=== PATIENT | male | born 1960 | race Caucasian/White ===

== ENCOUNTER 2020-06-14 08:45 | Outpatient (CLI) | payer BC, SELFPAY ==
[2020-06-14 10:06] LABS: Creatinine Urine 99.1 mg/dL
[2020-06-14 10:35] LABS: Free T4 Free Thyroxine 1.47 ng/mL (0.78-2.19)
[2020-06-14 10:50] LABS: MALB Creatinine Ratio 1005.7 mg/g (0-30); Microalbumin Urine Random 996.6 mg/L (0-16.7)
[2020-06-14 12:19] LABS: Anion Gap 9 mmol/L (8-16); Blood Urea Nitrogen 17 mg/dL (9-20); Calcium 9.3 mg/dL (8.4-10.2); Carbon Dioxide 23 mmol/L (22-30); Chloride 107 mmol/L (98-107); Estimated Glomerular Filt Rate > 60; Glucose 116 mg/dL (75-110); Sodium 139 mmol/L (137-145)
[2020-06-14 12:33] LABS: Thyroid Stimulating Hormone 0.707 uIU/mL (0.465-4.680)
== END 2020-06-14 08:46 | disposition home or self-care (01) ==
LOC: ANHLAB 08:47
PROVIDERS: PCP Internal Medicine; Visit Provider Physician Assistant
DX: E11.65 Type 2 diabetes mellitus with hyperglycemia (principal); E03.9 Hypothyroidism, unspecified
CPT/HCPCS: 36415; 80048; 82043; 84439; 84443

== ENCOUNTER 2021-08-24 15:16 | Outpatient (CLI) | payer BC, SELFPAY ==
[2021-08-24 15:57] LABS: Alanine Aminotransferase 30 U/L (4-50); Albumin Level 4.7 g/dL (3.5-5.1); Alkaline Phosphatase 70 U/L (38-126); Anion Gap 8 mmol/L (8-16); Aspartate Amino Transferase 39 U/L (17-59); Bilirubin,Total 0.4 mg/dL (0.2-1.3); Blood Urea Nitrogen 14 mg/dL (9-20); Calcium 9.6 mg/dL (8.4-10.2); Carbon Dioxide 25 mmol/L (22-30); Chloride 103 mmol/L (98-107); Cholesterol 201 mg/dL (0-200); Estimated Glomerular Filt Rate > 60; Glucose 219 mg/dL (65-110); HDL Direct 46 mg/dL; Sodium 136 mmol/L (137-145); Triglycerides 196 mg/dL (<150)
[2021-08-24 16:08] LABS: LDL Cholesterol Direct 112 mg/dL
[2021-08-24 16:24] LABS: Creatinine Urine 120.3 mg/dL
[2021-08-24 16:38] LABS: Free T4 Free Thyroxine 1.32 ng/mL (0.78-2.19); Vitamin D 25 Hydroxy 38.9 ng/mL
[2021-08-24 17:17] LABS: MALB Creatinine Ratio 944.9 mg/g (0-30); Microalbumin Urine Random 1136.7 mg/L (0-16.7)
== END 2021-08-24 15:17 | disposition home or self-care (01) ==
LOC: ANHLAB 15:17
PROVIDERS: PCP Internal Medicine; Visit Provider Nurse Practitioner Family
DX: E11.65 Type 2 diabetes mellitus with hyperglycemia (principal); E11.9 Type 2 diabetes mellitus without complications; I10 Essential (primary) hypertension; E78.5 Hyperlipidemia, unspecified
CPT/HCPCS: 36415; 80053; 80061; 82043; 82306; 82607; 84439; 84443

== ENCOUNTER 2022-06-14 08:59 | Inpatient (IN) | payer BC, SELFPAY ==
[2022-06-14] VITALS (24 sets, daily range): BP systolic 132–180; BP diastolic 52–78; PULSE 73–93; RESP 16–30; TEMP 36.7–37.1; O2SAT 91–97; BMI 31.4
--- NOTE | ~2022-06-14 | XR_ITS ---
XR chest 1V portable DATE: 06/14/2022 09:42 INDICATION: Cough, shortness of breath TECHNIQUE: Portable AP chest 04/14/2023 at 0938 hours COMPARISON: 02/22/2019 PA and lateral chest FINDINGS: Status post sternotomy and coronary bypass graft surgery. Minimal atelectasis or scarring is suggested in the lower lung zones. No pulmonary consolidation is n oted otherwise. No pleural effusion or pulmonary vascular congestion or pneumothorax is detected. IMPRESSION: Minimal atelectasis or scarring is suggested in the lower lung zones Reviewed, dictated and finalized at location B. L ROLLER IMPRESSION: Minimal atelectasis or scarring is suggested in the lower lung zone s
--- NOTE | ~2022-06-14 | CT_ITS ---
EXAMINATION: CTA chest PE abdomen pel DATE: 06/14/2022 13:29 INDICATION: Shortness of breath. Right-sided rib pain, abdominal pain. Elevated d-dimer. TECHNIQUE: Computed tomography angiography (CTA) of the chest, abdomen and pelvis was performed with 100 mL Omnipaque-350 intravenous contrast timed to evaluate the pulmonary arteries. Coronal maximum i ntensity projection 3D-reconstructions were created by the technologist. Automated exposure control a nd iterative reconstruction technique were employed. Exam dose: 1131.26 mGy-cm total exam DLP. COMPARISON: 06/14/2022 portable AP chest 06/19/2015 CT abdomen pelvis FINDINGS: There is diagnostic contrast enhancement of the pulmonary arteries and no evidence of pulmo nary embolism. There is patchy mild infiltrate throughout much of the right lower lobe, with slight involvement of t he right upper lobe. There is mild discoid atelectasis or scarring in the left lower lobe and to minimal extent lingula. There is mild bilateral mediastinal and hilar lymph node prominence, likely reactive. No thoracic aortic aneurysm or dissection. There is pleural calcification in the right lower thorax. Status post sternotomy. No pericardial or pleural effusion or pneumothorax. Status post cholecystectomy. No bile duct or pancreatic duct dilatation. Very small right hepatic cyst. The liver, spleen, pancreas and adrenal glands are unremarkable. Bilateral renal cysts, measuring up to 2 cm on the right, 1.7 cm on the left. No urinary tract calculus or urinary tract obstruction or hydroureteronephrosis. Prominent prostate enlargement. Small bilateral fat containing inguinal hernias. Small fat containing umbilical hernia. Diffuse idiopathic skeletal hyperostosis. No suspicious osteolytic or osteoblastic lesions. IMPRESSION: No evidence of pulmonary embolism Patchy right lower lobe and minimal upper lobe infiltrate, likely due to pneumonia Mild discoid atelectasis or scarring left lower lung Hepatic and renal cysts Prostate enlargement Reviewed, dictated and finalized at Location [facility]. Reviewed, dictated and finalized at location B. ER CHASER IMPRESSION: No evidence of pulmonary embolism Patchy right lower lobe and minimal upper lobe infiltrate, likely due to pneumo emir Mild discoid atelectasis or scarring left lower lung Hepatic and renal cysts Prostate enlargement
--- NOTE | 2022-06-14 09:23 | ECG_ITS ---
Measurements Intervals Spur Rate: 82 P: 71 GA: 162 QRS: 86 QRSD: 100 T: 56 QT: 379 QTc: 445 Interpretive Statements SINUS RHYTHM INCOMPLETE RIGHT BUNDLE BRANCH BLOCK BORDERLINE R WAVE PROGRESSION, ANTERIOR LEADS BASELINE ARTIFACT- I, II, III, AVR, AVL, AVF, V2-V6 BORDERLINE ECG COMPARED TO ECG 02/22/2019 11:27:29 NO SIGNIFICANT CHANGES Electronically Signed On 06-14-2022 10:49:44 [employer]ANE RENTAL CLERK by John Moise D.O.
--- NOTE | 2022-06-14 09:32 | ED.SOB ---
HPI - SOB/Dyspnea General Chief Complaint: Shortness of Breath/Dyspnea <Stephanie Martinez PA-C - Last Filed: 06/14/22 15:20> Stated Complaint: sob, cough <MARII Matthew Last Filed: 06/14/22 15:20> Time Seen by Provider: 06/14/22 09:09 <Stephanie Martinez PA-C - Last Filed: 06/14/22 15:20> Source: patient, family and RN notes reviewed <MARII Matthew Last Filed: 06/14/22 15:20> Mode of arrival: ambulatory <MARII Matthew Last Filed: 06/14/22 15:20> Limitations: no limitations <MARII Matthew Last Filed: 06/14/22 15:20> History of Present Illness HPI Narrative: This is a 62 year old male that presents to the ER for shortness of breath ongoing over the last couple of days. Reports productive cough, diarrhea and right sided abdominal pain ongoing over the last week. Reports the last couple of days he has become more short of breath, especially with exertion. He tried to go to work today and was sent home. Denies fever, chest pain, vomiting, or lower extremity edema. <MARII Matthew Last Filed: 06/14/22 15:20> Related Data Home Medications: Home Medications Medication Instructions Recorded Confirmed aspirin 81 mg tablet,delayed 81 mg PO DAILY 04/17/19 06/14/22 release (Adult Aspirin Regimen) metoprolol succinate 25 mg capsule 25 mg PO BID 04/17/19 06/14/22 sprinkle, ext. release 24 hr blood sugar diagnostic (OneTouch #10 ea 04/21/19 06/14/22 Ultra Blue Test Strip) lancets 33 gauge (OneTouch Delica #100 ea 04/21/19 06/14/22 Lancets) simvastatin 40 mg tablet 40 mg PO BID 12/07/21 06/14/22 <MARII Matthew Last Filed: 06/14/22 15:20> Allergies/Adverse Reactions: Allergies Allergy/AdvReac Type Severity Reaction Status Date / Time No Known Allergies Allergy Verified 06/14/22 17:31 <Stephanie Martinez PA-C - Last Filed: 06/14/22 15:20> Review of Systems Review of Systems: CONSTITUTIONAL: Denies fever ENT: Reports congestion CARDIOVASCULAR: Denies chest pain, or edema. RESPIRATORY: Reports cough and dyspnea. GASTROINTESTINAL: Reports abdominal pain, and diarrhea. Denies nausea, vomiting <Stephanie Martinez PA-C - Last Filed: 06/14/22 15:20> All systems reviewed & are unremarkable except as noted in HPI and below <Stephanie Martinez PA-C - Last Filed: 06/14/22 15:20> [facility] Past Medical History Medical History: Medical History (Updated 06/14/22 @ 14:21 by Stephanie Martinez PA-C) Hyperlipidemia Hypertension Hypothyroidism, unspecified Type 2 diabetes mellitus with hyperglycemia <Stephanie Martinez PA-C - Last Filed: 06/14/22 15:20> Surgical History Surgical History: Surgical History (Updated 06/14/22 @ 09:42 by Stephanie Martinez PA-C) History of cholecystectomy History of coronary artery bypass graft <Stephanie Martinez PA-C - Last Filed: 06/14/22 15:20> Family History Family History: Family History (Reviewed 03/15/22 @ 12:57 by Marianne Oro [facility]) Father Hypertension Family history of malignant neoplasm of kidney Family history of congestive heart failure Carcinoma of colon Family history of malignant neoplasm Patient's father is Mother Patient's mother is in good health Other Diabetes mellitus <Stephanie Martinez PA-C - Last Filed: 06/14/22 15:20> Social History Social History: Social History (Reviewed 03/15/22 @ 12:57 by Marianne Oro [facility]) Smoking status: Never smoker Second hand tobacco smoke exposure: No Alcohol intake: current Substance use: never Substance use type: does not use Lack of Transportation: No Lack of Food: Never True Current Housing: I Have Housing Concerned About Future Housing: No Difficulty Paying Gas/Electric Bills: No Difficulty Paying for Meds: No Currently Unemployed: No Education: High School Diploma/GED Difficulty w/ Childcare or Family Care: No Spiritual care concerns: No <Stephanie
[2022-06-14] MEDS: ALBUTEROL SULFATE NEB 2.5 MG/3 ML INH 5 MG INHALATION ×3 (09:50→21:07)
[2022-06-14] MEDS: IPRATROPIUM BR 0.02% INH SOLN 0.5 MG/2.5 ML VIAL INHALATION ×3 (09:50→21:08)
[2022-06-14 09:55] LABS: Basophils Absolute Auto 0.1 K/mm3 (0.0-0.1); Basophils Percent Auto 0.7 % (0.2-1.2); Eosinophils Percent Auto 0.1 % (0-4.4); Hematocrit 47.8 % (42.0-52.0); Hemoglobin 15.9 g/dL (14.0-18.0); Immature Granulocyte Absolute 0.08 K/mm3 (0.00-0.031); Immature Granulocyte Percent A 0.7 % (0-0.5); Lymphocytes Absolute Auto 1.23 K/mm3 (0.9-3.2); Lymphocytes Percent Auto 10.7 % (18.3-44.2); Mean Corpuscular HGB Conc 33.3 g/dl (32-36); Mean Corpuscular Hemoglobin 29.6 pg (26-34); Mean Corpuscular Volume 88.8 fl (80-100); Mean Platelet Volume 10.4 fl (7.4-10.4); Monocytes Absolute Auto 1.4 K/mm3 (0.1-0.6); Neutrophils Absolute Auto 8.8 K/mm3 (1.3-6.7); Neutrophils Percent Auto 75.8 % (45.5-73.1); Platelet Count Result 200 k/mm3 (150-375); Red Blood Count 5.38 M/mm3 (4.6-6.20); Red Cell Distribution Width 13.6 % (11.5-14.5); White Blood Count 11.5 K/mm3 (4.5-10.0)
[2022-06-14 10:01] LABS: Alveolar/Arterial O2 Gradient 48.5 mmHg; Base Excess ABG 0.2 mEq/l (+/-2.0); Carboxyhemoglobin 1.1 % THb (0-2.0); Device ROOM AIR; Fractional Inspired Oxygen 21 %; HCO3 ABG 23.1 mEq/l (22.0-26.0); Methemoglobin ABG 0.4 %THb (0-1.5); Modified Allen's Test Pass; Oxygen Content ABG 20.3 %vol (16.0-22.0); Oxygen Saturation ABG 93.2 % (95.0-100.0); Oxyhemoglobin 90.5 % THb (90.0-100.0); PCO2 ABG 32.9 mmHg (35.0-45.0); PO2 ABG 61.8 mmHg (80.0-100.0); PO2 FiO2 Ratio Arterial Blood 2.94 %; Site Drawn RIGHT RADIAL; pH ABG 7.464 (7.350-7.450)
[2022-06-14 10:05] LABS: Lactic Acid Reflex 2.1 mmol/L (0.7-2.0)
[2022-06-14 10:07] LABS: Alanine Aminotransferase 27 U/L (6-50); Albumin Level 4.7 g/dL (3.5-5.1); Alkaline Phosphatase 81 U/L (38-126); Anion Gap 9 mmol/L (8-16); Aspartate Amino Transferase 31 U/L (17-59); Bilirubin,Total 0.7 mg/dL (0.2-1.3); Blood Urea Nitrogen 12 mg/dL (9-20); CRP 2.9 mg/dL (<1.0); Calcium 9.4 mg/dL (8.4-10.2); Carbon Dioxide 26 mmol/L (22-30); Chloride 101 mmol/L (98-107); Estimated CRCL calculation 69 ml/min; Estimated Glomerular Filt Rate > 60; Glucose 260 mg/dL (65-110); Lipase 118 U/L (23-300); Potassium 4.5 mmol/L (3.4-5.0); Sodium 136 mmol/L (137-145)
[2022-06-14 10:13] LABS: NT Pro B Type Natriuretic Pept 1060 pg/mL (19.9-100)
[2022-06-14 10:29] LABS: Influenza A QL RT-PCR Negative (Negative); Influenza B QL RT-PCR Negative (Negative); SARS-CoV-2 RNA PCR Negative
[2022-06-14 10:30] LABS: INR 1.2; Partial Thromboplastin Time 33.9 SECONDS (22.3-36.8); Prothrombin Time 14.8 Seconds (11.1-14.7)
[2022-06-14] MEDS: SODIUM CHLORIDE 0.9% IV 500 ML 999 ML IV CONT (10:44)
[2022-06-14 12:02] LABS: D Dimer 0.57 ug/mL (<0.48)
[2022-06-14] MEDS: methylPREDNISolone SOD SUCC 125 MG VIAL IV PUSH (12:22)
--- NOTE | 2022-06-14 12:23 | PC.NURSE ---
CHRISTOPHER Brown placed pt on 2L NC
[2022-06-14 12:51] LABS: Reflex Lactic Acid Yes or No Add Lactic
[2022-06-14 13:22] LABS: Lactic Acid 2.1 mmol/L (0.7-2.0)
--- NOTE | 2022-06-14 13:30 | PM.IMHP ---
H&P: HPI History of Present Illness Date/Time: 06/14/22 13:30 Chief Complaint: Cough and shortness of breath. Narrative: This is a pleasant 62-year-old male with insulin dependent diabetes, coronary artery disease, hypertension, and hyperlipidemia who presented to the ED from home for evaluation of cough and shortness of breath. He has not been feeling well for several days with right-sided pleuritic pain, cough productive of white to yellow phlegm, chills, and progressive shortness of breath. His appetite has been okay and he denies nausea, vomiting, and significant diarrhea. He also denies fever, recent travel, and known sick contacts. Workup in the ED was significant for a WBC of 11.5, D-dimer 0.57, sodium 136, lactic acid 2.1, CRP 2.9, proBNP 1060. He tested negative for influenza and COVID. CTA of the chest, abdomen, and pelvis showed no evidence of pulmonary embolism but did note patchy right lower lobe and minimal upper lobe infiltrate likely due to pneumonia. He is being admitted in this setting for further care. Review of Systems Review of Systems: Twelve systems were reviewed. No headache, sinus congestion, sore throat. He denies chest pain palpitations. No orthopnea, PND, or lower extremity edema. No history of asthma or COPD. Except as documented, all other systems were reviewed and are negative. [facility] Past Medical History Medical History (Updated 06/14/22 @ 21:44 by Laura Cox PA-C) Aortic valve stenosis Severe by echo in October 2021 with moderate aortic valve regurgitation. Coronary artery disease Hyperlipidemia Hypertension Hypothyroidism, unspecified Insulin dependent type 2 diabetes mellitus Paroxysmal atrial fibrillation Surgical History Surgical History (Updated 06/14/22 @ 21:35 by Laura Cox PA-C) History of cholecystectomy (01/2019) History of two vessel coronary artery bypass graft (2014) Family History Family History Father Hypertension Family history of malignant neoplasm of kidney Family history of congestive heart failure Carcinoma of colon Family history of malignant neoplasm Patient's father is Mother Patient's mother is in good health Other Diabetes mellitus Social History Social History (Updated 06/14/22 @ 21:36 by Laura Cox PA-C) Social History: Surrogate medical decision maker: Lori Pineda, spouse. Code status: Full code. Smoking status: Never smoker Second hand tobacco smoke exposure: No Alcohol intake: current Substance use: never Substance use type: does not use Lack of Transportation: No Lack of Food: Never True Current Housing: I Have Housing Concerned About Future Housing: No Difficulty Paying Gas/Electric Bills: No Difficulty Paying for Meds: No Currently Unemployed: No Education: High School Diploma/GED Difficulty w/ Childcare or Family Care: No Spiritual care concerns: No Meds Home Medications and Allergies Home Medications Medication Instructions Recorded Confirmed Type aspirin 81 mg tablet,delayed 81 mg PO DAILY 04/17/19 06/14/22 History release (Adult Aspirin Regimen) metoprolol succinate 25 mg capsule 25 mg PO BID 04/17/19 06/14/22 History sprinkle, ext. release 24 hr blood sugar diagnostic (OneTouch #10 ea 04/21/19 06/14/22 History Ultra Blue Test Strip) lancets 33 gauge (OneTouch Delica #100 ea 04/21/19 06/14/22 History Lancets) pen needle, diabetic 31 gauge x #200 ea 08/18/21 06/14/22 Rx 5/16 (BD Ultra-Fine Short Pen Needle) dulaglutide 4.5 mg/0.5 mL 4.5 mg (0.5 mL) subcut WEEKLY 12/07/21 06/14/22 Rx subcutaneous pen injector days #6.5 mL simvastatin 40 mg tablet 40 mg PO BID 12/07/21 06/14/22 History losartan 50 mg tablet 50 mg PO DAILY 30 days #30 tabs 12/31/21 06/14/22 Rx insulin lispro protamine-lispro 60 unit (0.6 mL) subcut BID 02/03/22 06/14/22 Rx 100 unit/mL (75-25) subcut
[2022-06-14 16:18] LABS: Glucose Point of Care 317 mg/dl (65-105)
--- NOTE | 2022-06-14 17:13 | PC.NURSE ---
rn report given to edwin
[2022-06-14] MEDS: SODIUM CHLORIDE 0.9% IV 1,000 ML 999 ML IV CONT (17:15)
--- NOTE | 2022-06-14 17:28 | ADMGEN ---
This patient, Francisco Pineda, was admitted to Medical Room 245-. Patient/family oriented to hospital policies and general routines including ID bracelet, bed and alarms, visiting hours, pain management, procedures, bathroom and other care routines, personal items, smoking policy, room service/diet, and visiting hours. Information on how to activate the Rapid Response Team has been discussed. Patient/Family are encouraged to report perceived risks to care and to ask questions if they do not understand what they are told or what they should do.
[2022-06-14 21:16] LABS: Glucose Point of Care 401 mg/dl (65-105)
[2022-06-14] MEDS: INSULIN ASPART (*BKC) 100 UNITS/ML 8 UNITS SUB-Q (21:32)
[2022-06-14] MEDS: SIMVASTATIN 20 MG TABLET 40 MG PO (22:10)
[2022-06-14] MEDS: METOPROLOL SUCCINATE EXT REL 25 MG TABCR PO (22:10)
[2022-06-15] VITALS (11 sets, daily range): BP systolic 129–141; BP diastolic 58–65; PULSE 64–90; RESP 16–20; TEMP 36.4–36.9; O2SAT 90–98
[2022-06-15] MEDS: ALBUTEROL SULFATE NEB 2.5 MG/3 ML INH 5 MG INHALATION ×4 (02:22→21:05)
[2022-06-15] MEDS: IPRATROPIUM BR 0.02% INH SOLN 0.5 MG/2.5 ML VIAL INHALATION ×4 (02:23→21:04)
[2022-06-15] MEDS: LEVOTHYROXINE SODIUM 75 MCG TABLET PO (05:31)
[2022-06-15] MEDS: LEVOTHYROXINE SODIUM 100 MCG TABLET PO (05:31)
[2022-06-15 05:32] LABS: Hematocrit 44.8 % (42.0-52.0); Mean Corpuscular HGB Conc 33.5 g/dl (32-36); Mean Corpuscular Volume 89.6 fl (80-100); Mean Platelet Volume 10.5 fl (7.4-10.4); Platelet Count Result 205 k/mm3 (150-375); Red Cell Distribution Width 13.8 % (11.5-14.5); White Blood Count 13.7 K/mm3 (4.5-10.0)
[2022-06-15 05:43] LABS: Alanine Aminotransferase 27 U/L (6-50); Albumin Level 4.2 g/dL (3.5-5.1); Alkaline Phosphatase 78 U/L (38-126); Anion Gap 9 mmol/L (8-16); Aspartate Amino Transferase 33 U/L (17-59); Bilirubin,Total 0.4 mg/dL (0.2-1.3); Blood Urea Nitrogen 19 mg/dL (9-20); Calcium 8.9 mg/dL (8.4-10.2); Carbon Dioxide 23 mmol/L (22-30); Chloride 103 mmol/L (98-107); Estimated CRCL calculation 76 ml/min; Estimated Glomerular Filt Rate > 60; Glucose 356 mg/dL (65-110); Magnesium 2.1 mg/dL (1.6-2.3); Potassium 4.3 mmol/L (3.4-5.0); Sodium 135 mmol/L (137-145)
[2022-06-15 06:33] LABS: Hemoglobin A1C 7.5 % (<5.7)
[2022-06-15 08:45] LABS: Glucose Point of Care 405 mg/dl (65-105)
[2022-06-15] MEDS: INSULIN ASPART (*BKC) 100 UNITS/ML SUB-Q ×2 (08:53→12:36)
[2022-06-15] MEDS: SIMVASTATIN 20 MG TABLET 40 MG PO ×2 (08:59→17:33)
[2022-06-15] MEDS: LOSARTAN POTASSIUM 50 MG TABLET PO (08:59)
[2022-06-15] MEDS: ENOXAPARIN 40 MG/0.4 ML SYRINGE SUB-Q (08:59)
[2022-06-15] MEDS: ASPIRIN 81 MG ENTERIC TABLET PO (08:59)
[2022-06-15] MEDS: METOPROLOL SUCCINATE EXT REL 25 MG TABCR PO ×2 (08:59→17:32)
[2022-06-15 12:18] LABS: Glucose Point of Care 340 mg/dl (65-105)
--- NOTE | 2022-06-15 16:44 | PM.IMPN ---
Progress Note: A&P Assessment and Plan (1) Hypoxia: Code(s): R09.02 - Hypoxemia Status: Acute Assessment and Plan: patient noted to be hypoxic in the 80s on presentation. He required up to 2 L supplemental O2. He has been weaned to room air and is maintaining adequate O2 sats today. [place] to be secondary to pneumonia as described below. Will plan for home O2 eval prior to discharge. CTA negative for PE. (2) Pneumonia involving right lung: Code(s): J18.9 - Pneumonia, unspecified organism Status: Acute Assessment and Plan: Presented with cough, shortness of breath and general malaise for 5 days. imaging revealed right lower lobe pneumonia. Continue with IV ceftriaxone and azithromycin. Sputum culture ordered, awaiting collection ( patient has nonproductive cough). Legionella and pneumococcal antigens pending. COVID and influenza negative. blood cultures pending. Supportive care. (3) Wheezing: Code(s): R06.2 - Wheezing Status: Acute Assessment and Plan: Patient is mild wheezing on exam. Received 1 dose of IV Solu-Medrol in the ED which resulted in sharp increase in blood sugar, therefore systemic steroids on hold. Continue with scheduled bronchodilators. Patient has had symptomatic improvement. (4) Insulin dependent type 2 diabetes mellitus: Code(s): E11.9 - Type 2 diabetes mellitus without complications; Z79.4 - buttermaker (current) use of insulin Status: Acute Assessment and Plan: A1c is 7.5. Blood sugars elevated today ranging from 340-400. Likely precipitated by dose of steroid. resume home Humalog 75/25 60 units b.i.d.. Continue with high-dose sliding scale insulin. Monitor Accu-Cheks. hypoglycemic protocol in place. Consider increasing Humalog as needed based on blood sugar trends, however anticipate improvement given discontinuation of steroids (5) Coronary artery disease: Code(s): I25.10 - Atherosclerotic heart disease of [place] coronary artery without angina pectoris Status: Chronic Assessment and Plan: No acute issues. Continue home aspirin (6) Hypertension: Code(s): I10 - Essential (primary) hypertension Status: Acute Assessment and Plan: blood sugars have been stable. Last BP 137/58. Continue home losartan and metoprolol Subjective Date/time seen: 06/15/22 16:45 Interval history: date of service: 06/15/2022 Francisco Pineda is a 62-year-old male with a history of aortic stenosis, CAD, hypertension, hyperlipidemia, hypothyroidism, type 2 diabetes mellitus, and paroxysmal atrial fibrillation who is seen in follow-up for pneumonia. Patient states he is feeling much better today. States his breathing has improved in he is wheezing less often. He is still coughing occasionally but has no sputum production. States he is coughing less often and is less forceful. Denies shortness of breath Or LAWS. Denies fever, chills, nausea, or vomiting. He does complain of sore throat. Review of Systems Review of Systems: All systems reviewed & are unremarkable except as noted in HPI and below Exam Narrative: General: Well-nourished, well-appearing 62-year-old male, sitting up in bed, comfortable, NARD Neuro: awake, alert and oriented x4, speech clear, no focal neuro deficits noted HEENMT: normocephalic, atraumatic, EOMI, sclerae anicteric Respiratory: faint expiratory wheezes, nonlabored breathing Cardio: regular rate, regular rhythm with S1-S2 Abdomen: nondistended, normoactive bowel sounds, soft, nontender to palpation Extremities: no edema, erythema, or tenderness to palpation Skin: no rashes or lesions, warm and dry Psych: appropriate mood and affect, judgment and insight intact Objective Data Vital Signs Vital Signs: Vital Signs - 24 hr 06/14/22 16:46 06/14/22 18:23 06/14/22 20:45 Temperature 98.7 F 98.6 F Pulse Rate 82 81 79 Respiratory Rate 24
[2022-06-15 17:15] LABS: Glucose Point of Care 93 mg/dl (65-105)
[2022-06-15] MEDS: AZITHROMYCIN IV 500 MG in SODIUM CHLORIDE 0.9% IV 250 ML 250 MG IVPB (17:31)
[2022-06-15] MEDS: cefTRIAXone 1 GM in SODIUM CHLORIDE 0.9% IV 100 ML 200 ML IVPB (17:31)
[2022-06-15 17:53] LABS: Glucose Point of Care 136 mg/dl (65-105)
[2022-06-15] MEDS: FLUTICASONE PROP 44 MCG (*SP) 10.6 GM 2 PUFF INHALATION (21:05)
[2022-06-15] MEDS: guaiFENesin 12 HR 600 MG TABCR PO (21:28)
[2022-06-15] MEDS: VANCOMYCIN HCL 1,250 MG in SODIUM CHLORIDE 0.9% IV 250 ML 200 MG IVPB (21:28)
[2022-06-16] VITALS (13 sets, daily range): BP systolic 117–135; BP diastolic 55–96; PULSE 61–78; RESP 18–24; TEMP 36.6–36.9; O2SAT 91–95
--- NOTE | 2022-06-16 | ECHO_ITS ---
Patient Info Name: Francisco Pineda Age: 62 years : 1960 Gender: Male Ht: 66 in Wt: 201 lbs BSA: 2.09 m2 HR: 68 bpm BP: 121 / 55 mmHg Heart Rhythm: Sinus Rhythm Exam Date: 06/16/2022 4:04 PM Exam Location: [facility] Pulmonary Patient Status: Inpatient Admit Date: 06/16/2022 Staff Ordering Physician: Roseline Carlson PA-C Body Builder: Petr Bates RDCS Attending Provider: Roseline Carlson PA-C Referring Physician: Aldo PLAZA; Exam Type: CA echo doppler color flow Study Info Indications - bacteremia Complete two-dimensional, color flow and Doppler transthoracic echocardiogram is performed. Summary 1. Complete two-dimensional, color flow and Doppler transthoracic echocardiogram is performed. 2. Left ventricular chamber dimension is normal. 3. Left ventricular systolic function is normal, estimated at 60-65%. 4. Right ventricular systolic function is normal. 5. There is severe aortic valve calcification. 6. There is moderate to severe aortic valve stenosis with a peak velocity of 330 cm/s, mean gradient of 30 mmHg, and aortic valve area of 0.9 cm2. 7. There is mild aortic valve regurgitation. 8. The mitral valve has thickened leaflets and calcified leaflets. 9. The mitral valve annulus is mildly calcified. 10. There is moderate mitral valve regurgitation. Left Ventricle Left ventricular chamber dimension is normal. Left ventricular systolic function is normal, estimated at 60-65%. There is no increased left ventricular wall thickness. The left ventricular diastolic function is indeterminate. Right Ventricle Right ventricular chamber dimension is normal. Right ventricular systolic function is normal. Left Atria Left atrial chamber dimension is normal. Right Atria Right atrial chamber dimension is normal. Atrial Septum Intact interatrial septum visualized by color flow imaging. Aortic Valve The aortic valve is probable trileaflet. There is moderate to severe aortic valve stenosis with a peak velocity of 330 cm/s, mean gradient of 30 mmHg, and aortic valve area of 0.9 cm2. There is mild aortic valve regurgitation. There is severe aortic valve calcification. Pulmonic Valve The pulmonic valve is not well visualized. Mitral Valve The mitral valve has thickened leaflets and calcified leaflets. There is no mitral valve stenosis. There is moderate mitral valve regurgitation. The mitral valve annulus is mildly calcified. Tricuspid Valve The tricuspid valve leaflets are normal. There is no significant tricuspid valve stenosis. There is trace tricuspid valve regurgitation. Pericardium/Pleural There is no pericardial effusion. Inferior Vena Cava Dilated inferior vena cava with >50% collapse upon inspiration consistent with elevated right atrial pressure, 8 mmHg. Aorta The aortic root size at the sinus of Valsalva is normal. Left Ventricular Outflow Tract Name Value Normal LVOT 2D LVOT Diameter 1.8 cm LVOT Doppler LVOT Peak Gradient 6 mmHg LVOT Mean Gradient 3 mmHg LVOT VTI
[2022-06-16] MEDS: ALBUTEROL SULFATE NEB 2.5 MG/3 ML INH 5 MG INHALATION ×4 (02:32→19:35)
[2022-06-16] MEDS: IPRATROPIUM BR 0.02% INH SOLN 0.5 MG/2.5 ML VIAL INHALATION ×4 (02:32→19:34)
[2022-06-16 05:09] LABS: Hematocrit 47.4 % (42.0-52.0); Hemoglobin 15.7 g/dL (14.0-18.0); Mean Corpuscular HGB Conc 33.1 g/dl (32-36); Mean Corpuscular Hemoglobin 30.3 pg (26-34); Mean Corpuscular Volume 91.3 fl (80-100); Mean Platelet Volume 10.2 fl (7.4-10.4); Platelet Count Result 237 k/mm3 (150-375); Red Blood Count 5.19 M/mm3 (4.6-6.20); Red Cell Distribution Width 14.2 % (11.5-14.5); White Blood Count 15.9 K/mm3 (4.5-10.0)
[2022-06-16 05:17] LABS: Anion Gap 8 mmol/L (8-16); Blood Urea Nitrogen 23 mg/dL (9-20); Calcium 8.9 mg/dL (8.4-10.2); Carbon Dioxide 23 mmol/L (22-30); Chloride 107 mmol/L (98-107); Estimated CRCL calculation 77 ml/min; Estimated Glomerular Filt Rate > 60; Glucose 106 mg/dL (65-110); Potassium 3.9 mmol/L (3.4-5.0); Sodium 138 mmol/L (137-145)
[2022-06-16] MEDS: LEVOTHYROXINE SODIUM 100 MCG TABLET PO (05:54)
[2022-06-16] MEDS: LEVOTHYROXINE SODIUM 75 MCG TABLET PO (05:54)
[2022-06-16] MEDS: VANCOMYCIN HCL 1,250 MG in SODIUM CHLORIDE 0.9% IV 250 ML 200 MG IVPB ×2 (06:22→18:33)
[2022-06-16] MEDS: ENOXAPARIN 40 MG/0.4 ML SYRINGE SUB-Q (08:32)
[2022-06-16] MEDS: SIMVASTATIN 20 MG TABLET 40 MG PO ×2 (08:32→17:02)
[2022-06-16] MEDS: METOPROLOL SUCCINATE EXT REL 25 MG TABCR PO ×2 (08:33→17:01)
[2022-06-16] MEDS: LOSARTAN POTASSIUM 50 MG TABLET PO (08:33)
[2022-06-16] MEDS: guaiFENesin 12 HR 600 MG TABCR PO ×2 (08:35→22:31)
[2022-06-16] MEDS: ASPIRIN 81 MG ENTERIC TABLET PO (08:35)
[2022-06-16] MEDS: FLUTICASONE PROP 44 MCG (*SP) 10.6 GM 2 PUFF INHALATION ×2 (09:27→19:36)
[2022-06-16 10:22] LABS: Glucose Point of Care 117 mg/dl (65-105)
[2022-06-16 12:45] LABS: Glucose Point of Care 184 mg/dl (65-105)
--- NOTE | 2022-06-16 14:44 | PM.IMPN ---
Progress Note: A&P Assessment and Plan (1) Hypoxia: Code(s): R09.02 - Hypoxemia Status: Acute Assessment and Plan: Patient noted to be hypoxic in the 80s on presentation. He required up to 2 L supplemental O2. He has been weaned to room air and is maintaining adequate O2 sats today. [place] to be secondary to pneumonia as described below. Will plan for home O2 eval prior to discharge. CTA negative for PE. (2) Pneumonia involving right lung: Code(s): J18.9 - Pneumonia, unspecified organism Status: Acute Assessment and Plan: Presented with cough, shortness of breath and general malaise for 5 days. imaging revealed right lower lobe pneumonia. Continue with IV ceftriaxone and PO azithromycin. Sputum culture ordered, awaiting collection (patient has nonproductive cough). Legionella and pneumococcal antigens pending. COVID and influenza negative. Supportive care. (3) Positive blood cultures: Code(s): R78.81 - Bacteremia Status: Acute Assessment and Plan: 2/2 blood cultures with growth of Staphylococcus epidermidis in aerobic and anaerobic bottles. Unsure if contaminant versus true infection. Given rising leukocytosis, will continue with IV vancomycin while awaiting results of repeat culture. Unclear source, possibly transient cutaneous infection. Will obtain repeat blood cultures today. Will obtain echocardiogram given history of valvular disease (4) Wheezing: Code(s): R06.2 - Wheezing Status: Acute Assessment and Plan: Patient has mild wheezing on exam. Received 1 dose of IV Solu-Medrol in the ED which resulted in sharp increase in blood sugar, therefore further systemic steroids have been deferred. Continue with scheduled bronchodilators. Patient has had symptomatic improvement. (5) Insulin dependent type 2 diabetes mellitus: Code(s): E11.9 - Type 2 diabetes mellitus without complications; Z79.4 - emt intermediate (current) use of insulin Status: Acute Assessment and Plan: A1c is 7.5. Blood sugars elevated yesterday ranging from 340-400. Likely precipitated by dose of steroid. continue home Humalog 75/25 60 units b.i.d.. Continue with high-dose sliding scale insulin. Monitor Accu-Cheks. hypoglycemic protocol in place. blood sugars improved today from 106-184 (6) Coronary artery disease: Code(s): I25.10 - Atherosclerotic heart disease of [place] coronary artery without angina pectoris Status: Chronic Assessment and Plan: No acute issues. Continue home aspirin (7) Hypertension: Code(s): I10 - Essential (primary) hypertension Status: Acute Assessment and Plan: blood pressures have been stable. Last BP 121/55. Continue home losartan and metoprolol Subjective Date/time seen: 06/16/22 14:44 Interval history: Date of service: 06/15/2022 Francisco Pineda is a 62-year-old male with a history of aortic stenosis, CAD, hypertension, hyperlipidemia, hypothyroidism, type 2 diabetes mellitus, and paroxysmal atrial fibrillation who is seen in follow-up for pneumonia. he is feeling well today. He denies shortness of breath. No wheezing. He has intermittent cough that is nonproductive. He denies fevers or chills. Denies any wounds or skin openings. Tolerating his diet. No nausea or vomiting. Denies chest pain or palpitations. Review of Systems Review of Systems: All systems reviewed & are unremarkable except as noted in HPI and below Exam Narrative: General: Well-nourished, well-appearing 62-year-old male, sitting up in bed, comfortable, NARD Neuro: awake, alert and oriented x4, speech clear, no focal neuro deficits noted HEENMT: normocephalic, atraumatic, EOMI, sclerae anicteric Respiratory: faint expiratory wheezes, nonlabored breathing Cardio: regular rate, regular rhythm, systolic murmur Abdomen: nondistended, normoactive bowel sounds, soft, nontender
--- NOTE | 2022-06-16 15:58 | PC.NURSE ---
On 06/16/22, the student, [Nita Galaviz], provided care and completed [facility] documentation on this patient. I have reviewed the student's documentation and agree with the findings.
[2022-06-16] MEDS: cefTRIAXone 1 GM in SODIUM CHLORIDE 0.9% IV 100 ML 200 ML IVPB (17:00)
[2022-06-16] MEDS: AZITHROMYCIN 250 MG TABLET 500 MG PO (17:02)
[2022-06-16 17:13] LABS: Glucose Point of Care 195 mg/dl (65-105)
[2022-06-16 22:35] LABS: Glucose Point of Care 130 mg/dl (65-105)
[2022-06-17] VITALS (14 sets, daily range): BP systolic 125–133; BP diastolic 54–68; PULSE 58–74; RESP 18–20; TEMP 36.8; O2SAT 92–100
[2022-06-17] MEDS: IPRATROPIUM BR 0.02% INH SOLN 0.5 MG/2.5 ML VIAL INHALATION ×4 (02:33→20:56)
[2022-06-17] MEDS: ALBUTEROL SULFATE NEB 2.5 MG/3 ML INH 5 MG INHALATION ×4 (02:33→20:55)
[2022-06-17] MEDS: LEVOTHYROXINE SODIUM 100 MCG TABLET PO (05:57)
[2022-06-17] MEDS: LEVOTHYROXINE SODIUM 75 MCG TABLET PO (05:57)
[2022-06-17 06:14] LABS: Hematocrit 48.1 % (42.0-52.0); Hemoglobin 15.5 g/dL (14.0-18.0); Mean Corpuscular HGB Conc 32.2 g/dl (32-36); Mean Corpuscular Hemoglobin 29.6 pg (26-34); Mean Corpuscular Volume 91.8 fl (80-100); Platelet Count Result 229 k/mm3 (150-375); Red Blood Count 5.24 M/mm3 (4.6-6.20); Red Cell Distribution Width 14.1 % (11.5-14.5); White Blood Count 9.2 K/mm3 (4.5-10.0)
[2022-06-17 06:33] LABS: Anion Gap 7 mmol/L (8-16); Blood Urea Nitrogen 17 mg/dL (9-20); Calcium 8.5 mg/dL (8.4-10.2); Carbon Dioxide 23 mmol/L (22-30); Chloride 107 mmol/L (98-107); Estimated CRCL calculation 76 ml/min; Estimated Glomerular Filt Rate > 60; Glucose 181 mg/dL (65-110); Potassium 4.3 mmol/L (3.4-5.0); Sodium 137 mmol/L (137-145)
[2022-06-17 07:06] LABS: Vancomycin Trough 10.8 ug/mL (10.0-20.0)
[2022-06-17] MEDS: ENOXAPARIN 40 MG/0.4 ML SYRINGE SUB-Q (08:30)
[2022-06-17] MEDS: VANCOMYCIN HCL 1,500 MG in SODIUM CHLORIDE 0.9% IV 500 ML 333.33 MG IVPB (08:30)
[2022-06-17] MEDS: ASPIRIN 81 MG ENTERIC TABLET PO (08:30)
[2022-06-17] MEDS: SIMVASTATIN 20 MG TABLET 40 MG PO ×2 (08:31→17:08)
[2022-06-17] MEDS: METOPROLOL SUCCINATE EXT REL 25 MG TABCR PO ×2 (08:31→17:09)
[2022-06-17] MEDS: guaiFENesin 12 HR 600 MG TABCR PO ×2 (08:31→19:56)
[2022-06-17] MEDS: LOSARTAN POTASSIUM 50 MG TABLET PO (08:31)
[2022-06-17] MEDS: INSULIN ASPART (*BKC) 100 UNITS/ML SUB-Q (08:39)
[2022-06-17 08:40] LABS: Glucose Point of Care 205 mg/dl (65-105)
[2022-06-17] MEDS: FLUTICASONE PROP 44 MCG (*SP) 10.6 GM 2 PUFF INHALATION ×2 (09:09→20:56)
[2022-06-17 12:16] LABS: Glucose Point of Care 99 mg/dl (65-105)
--- NOTE | 2022-06-17 16:34 | PM.IMPN ---
Progress Note: A&P Assessment and Plan (1) Hypoxia: Code(s): R09.02 - Hypoxemia Status: Acute Assessment and Plan: Patient noted to be hypoxic in the 80s on presentation. He required up to 2 L supplemental O2. He has been weaned to room air and is maintaining adequate O2 sats today. [place] to be secondary to pneumonia as described below. Will plan for home O2 eval prior to discharge. CTA negative for PE. (2) Pneumonia involving right lung: Code(s): J18.9 - Pneumonia, unspecified organism Status: Acute Assessment and Plan: Presented with cough, shortness of breath and general malaise for 5 days. imaging revealed right lower lobe pneumonia. Continue with IV ceftriaxone and PO azithromycin #4. Last dose of azithromycin will be tomorrow afternoon. Not able to obtain sputum culture as patient has nonproductive cough. Legionella and pneumococcal antigens pending. COVID and influenza negative. Supportive care. (3) Positive blood cultures: Code(s): R78.81 - Bacteremia Status: Acute Assessment and Plan: 2/2 blood cultures with growth of Staphylococcus epidermidis in aerobic and anaerobic bottles. Unsure if contaminant, however true infection unable to be ruled out, therefore will continue with IV vancomycin. Unclear source, possibly transient cutaneous infection. Repeat blood cultures collected on 06/16/2022. If negative after 48 hours, will plan to discharge patient tomorrow with 2 week course of Bactrim. discussed the case with Infectious Disease pharmacist. Leukocytosis has resolved. Echocardiogram completed and reviewed with no evidence of vegetation. (4) Wheezing: Code(s): R06.2 - Wheezing Status: Resolved Assessment and Plan: Patient had mild wheezing on presentation. Received 1 dose of IV Solu-Medrol in the ED which resulted in sharp increase in blood sugar, therefore further systemic steroids have been deferred. Continue with scheduled bronchodilators. Patient has had symptomatic improvement and wheezing has resolved (5) Insulin dependent type 2 diabetes mellitus: Code(s): E11.9 - Type 2 diabetes mellitus without complications; Z79.4 - skilled nursing (current) use of insulin Status: Acute Assessment and Plan: A1c is 7.5. Blood sugars elevated initially ranging from 340-400. Likely precipitated by dose of steroid. continue home Humalog 75/25 60 units b.i.d.. Continue with high-dose sliding scale insulin. Monitor Accu-Cheks. hypoglycemic protocol in place. Blood sugars are improved. (6) Coronary artery disease: Code(s): I25.10 - Atherosclerotic heart disease of [place] coronary artery without angina pectoris Status: Chronic Assessment and Plan: No acute issues. Continue home aspirin (7) Hypertension: Code(s): I10 - Essential (primary) hypertension Status: Acute Assessment and Plan: blood pressures have been stable. Last BP 128/58. Continue home losartan and metoprolol Time Spent With Patient Time with patient: Greater than 35 minutes Subjective Date/time seen: 06/17/22 16:34 Interval history: Date of service: 06/17/2022 Francisco Pineda is a 62-year-old male with a history of aortic stenosis, CAD, hypertension, hyperlipidemia, hypothyroidism, type 2 diabetes mellitus, and paroxysmal atrial fibrillation who is seen in follow-up for pneumonia. He is feeling very well today, back to his usual state of health. States that his cough is nearly resolved. He denies shortness of breath, cough, chest pain. No fever, chills, nausea, or vomiting. No wheezing. Review of Systems Review of Systems: All systems reviewed & are unremarkable except as noted in HPI and below Exam Narrative: General: Well-nourished, well-appearing 62-year-old male, sitting up in bed, comfortable, NARD Neuro: awake, alert and oriented x4, speech clear, no focal neuro deficits n
[2022-06-17] MEDS: AZITHROMYCIN 250 MG TABLET 500 MG PO (17:07)
[2022-06-17 17:08] LABS: Glucose Point of Care 127 mg/dl (65-105)
[2022-06-17 17:43] LABS: Mycoplasma IgM Antibody Titer 148 U/mL (<770)
[2022-06-17] MEDS: CEFDINIR 300 MG CAPSULE PO (19:56)
[2022-06-17] MEDS: VANCOMYCIN HCL 1,500 MG in SODIUM CHLORIDE 0.9% IV 500 ML 333 MG IVPB (19:57)
[2022-06-17 20:14] LABS: Glucose Point of Care 172 mg/dl (65-105)
[2022-06-18] VITALS (13 sets, daily range): BP systolic 139; BP diastolic 61–74; PULSE 60–74; RESP 16–20; TEMP 36.6–36.7; O2SAT 93–99
[2022-06-18] MEDS: IPRATROPIUM BR 0.02% INH SOLN 0.5 MG/2.5 ML VIAL INHALATION ×3 (01:18→13:45)
[2022-06-18] MEDS: ALBUTEROL SULFATE NEB 2.5 MG/3 ML INH 5 MG INHALATION ×3 (01:18→13:45)
[2022-06-18] MEDS: LEVOTHYROXINE SODIUM 100 MCG TABLET PO (05:37)
[2022-06-18] MEDS: LEVOTHYROXINE SODIUM 75 MCG TABLET PO (05:37)
[2022-06-18 06:24] LABS: Hematocrit 47.6 % (42.0-52.0); Hemoglobin 15.2 g/dL (14.0-18.0); Mean Corpuscular HGB Conc 31.9 g/dl (32-36); Mean Corpuscular Hemoglobin 29.6 pg (26-34); Mean Corpuscular Volume 92.6 fl (80-100); Mean Platelet Volume 10.2 fl (7.4-10.4); Platelet Count Result 230 k/mm3 (150-375); Red Blood Count 5.14 M/mm3 (4.6-6.20); White Blood Count 9.5 K/mm3 (4.5-10.0)
[2022-06-18 06:42] LABS: Anion Gap 8 mmol/L (8-16); Blood Urea Nitrogen 12 mg/dL (9-20); Calcium 8.7 mg/dL (8.4-10.2); Carbon Dioxide 23 mmol/L (22-30); Chloride 102 mmol/L (98-107); Estimated CRCL calculation 86 ml/min; Estimated Glomerular Filt Rate > 60; Glucose 157 mg/dL (65-110); Potassium 3.7 mmol/L (3.4-5.0); Sodium 133 mmol/L (137-145)
[2022-06-18] MEDS: FLUTICASONE PROP 44 MCG (*SP) 10.6 GM 2 PUFF INHALATION (07:57)
[2022-06-18 08:42] LABS: Glucose Point of Care 130 mg/dl (65-105)
--- NOTE | 2022-06-18 11:07 | PCRCNOTE ---
Home O2 eval completed. Patient does not require Home O2 at this time. RN notified.
[2022-06-18] MEDS: ASPIRIN 81 MG ENTERIC TABLET PO (11:10)
[2022-06-18] MEDS: guaiFENesin 12 HR 600 MG TABCR PO (11:10)
[2022-06-18] MEDS: METOPROLOL SUCCINATE EXT REL 25 MG TABCR PO (11:10)
[2022-06-18] MEDS: SIMVASTATIN 20 MG TABLET 40 MG PO (11:10)
[2022-06-18] MEDS: CEFDINIR 300 MG CAPSULE PO (11:10)
[2022-06-18] MEDS: ENOXAPARIN 40 MG/0.4 ML SYRINGE SUB-Q (11:11)
[2022-06-18] MEDS: VANCOMYCIN HCL 1,500 MG in SODIUM CHLORIDE 0.9% IV 500 ML 333 MG IVPB (11:16)
[2022-06-18] MEDS: LOSARTAN POTASSIUM 50 MG TABLET PO (11:37)
[2022-06-18 12:18] LABS: Glucose Point of Care 101 mg/dl (65-105)
--- NOTE | 2022-06-18 14:49 | PM.DS ---
DS: Admitting Diagnosis Discharge Date 06/18/2022 Admitting Diagnosis Pneumonia DS: Discharge Diagnosis Discharge Diagnosis (1) Hypoxia: Code(s): R09.02 - Hypoxemia Status: Acute Assessment and Plan: Patient noted to be hypoxic in the 80s on presentation. He required up to 2 L supplemental O2. He was weaned to room air and maintained adequate O2 sats. CTA negative for PE. [place] to be secondary to pneumonia as described below. Home O2 eval completed on 06/18/2022 and patient has no ongoing oxygen requirement (2) Pneumonia involving right lung: Code(s): J18.9 - Pneumonia, unspecified organism Status: Acute Assessment and Plan: Presented with cough, shortness of breath and general malaise for 5 days. Imaging revealed right lower lobe pneumonia. Received IV ceftriaxone and azithromycin. Completed 5 days of azithromycin during admission. Will continue p.o. cefdinir as an outpatient to complete 7 days. Not able to obtain sputum culture. Pneumococcal antigen not detected. Legionella pending. COVID and influenza negative. Supportive care provided. (3) Positive blood cultures: Code(s): R78.81 - Bacteremia Status: Acute Assessment and Plan: 2/2 blood cultures with growth of Staphylococcus epidermidis in aerobic and anaerobic bottles. Patient was initiated on IV Vancomycin. Unclear source, possibly transient cutaneous infection. Repeat blood cultures collected on 06/16/2022 negative after 48 hours. Patient discharged with 2 week course of Bactrim. Case was discussed with Infectious Disease pharmacist. Echocardiogram completed and reviewed with no evidence of vegetation. Final blood cultures will be monitored. (4) Wheezing: Code(s): R06.2 - Wheezing Status: Resolved Assessment and Plan: Patient had mild wheezing on presentation. Received 1 dose of IV Solu-Medrol in the ED which resulted in sharp increase in blood sugar, therefore further systemic steroids were deferred. Received DuoNebs with improvement. Patient had symptomatic improvement and wheezing has resolved. Albuterol rescue inhaler provided. (5) Insulin dependent type 2 diabetes mellitus: Code(s): E11.9 - Type 2 diabetes mellitus without complications; Z79.4 - half-way (current) use of insulin Status: Acute Assessment and Plan: A1c is 7.5. Blood sugars elevated initially ranging from 340-400. Likely precipitated by dose of steroid. Blood sugars improved after cessation of steroids on home regimen which will be continued as an outpatient. (6) Coronary artery disease: Code(s): I25.10 - Atherosclerotic heart disease of [place] coronary artery without angina pectoris Status: Chronic Assessment and Plan: No acute issues. Continue home aspirin (7) Hypertension: Code(s): I10 - Essential (primary) hypertension Status: Acute Assessment and Plan: blood pressures remained stable. Continue home losartan and metoprolol DS: Summary Hospital Course Hospital Course: Date of admission: 06/14/2022 Date of discharge: 06/18/2022 Francisco Pineda is a 62-year-old male with a history of aortic stenosis, CAD, hypertension, hyperlipidemia, hypothyroidism, type 2 diabetes mellitus, and paroxysmal atrial fibrillation?who presented to the emergency department on 06/14/2022 with complaints of shortness of breath ongoing for several days with productive cough. On presentation to the ED, he was noted to be hypoxic in the upper 80s and was placed on 2 L supplemental O2, additional vital signs were stable, white blood cell count mildly elevated 11.5, blood glucose 260, COVID influenza negative,, additional laboratory workup was unremarkable, CXR revealed minimal atelectasis or scarring in the lower lung zones and CTA of the chest/abdomen/pelvis was negative for PE with patchy right lower lobe with minimal upper lobe infiltrates due to pneumonia. He was
[2022-06-18] MEDS: AZITHROMYCIN 250 MG TABLET 500 MG PO (15:36)
[2022-06-18 17:36] LABS: Pneumococcal Antigen Urine Not Detected (Not Detected)
[2022-06-19 21:37] LABS: Legionella pneumophila Ag Ur Not Detected (Not Detected)
--- NOTE | 2022-06-22 08:52 | PC.NURSE ---
Blood cx are negative.
== END 2022-06-18 15:50 | disposition home or self-care (01) | DRG 194 ==
LOC: ANHED 15:15 → ANH2MED 15:39
PROVIDERS: Internal Medicine; Physician Assistant; Admitting Provider Chiropractor; Emergency Provider Emergency Medicine; PCP Internal Medicine; Visit Provider Physician Assistant
DX: J18.9 Pneumonia, unspecified organism (principal); R78.81 Bacteremia; I48.0 Paroxysmal atrial fibrillation; I35.0 Nonrheumatic aortic (valve) stenosis; I10 Essential (primary) hypertension; I25.10 Atherosclerotic heart disease of native coronary artery without angina pectoris; E03.9 Hypothyroidism, unspecified; E78.5 Hyperlipidemia, unspecified; E11.9 Type 2 diabetes mellitus without complications; R09.02 Hypoxemia; Z20.822 Contact with and (suspected) exposure to COVID-19; Z79.82 Long term (current) use of aspirin; Z80.0 Family history of malignant neoplasm of digestive organs; Z79.4 Long term (current) use of insulin; Z95.1 Presence of aortocoronary bypass graft
CPT/HCPCS: 36415; 36600; 71045; 71275; 74177; 80048; 80053; 80202; 82375; 82805; 82948; 83036; 83050; 83605; 83690; 83735; 83880; 85025; 85027; 85380; 85610; 85730; 86140; 86738; 87040; 87077; 87186; 87449; 87636; 87899; 93005; 93306; 94618; 94640; 94667; 96361; 96365; 96366; 96367; 96368; 96372; 96374; 96375; 96376; 99285; A9270; G0378; J0456; J0696; J1650; J1815; J2930; J3370; J7030; J7040; J7050; Q9967

== ENCOUNTER 2023-03-12 06:59 | Outpatient (CLI) | payer BC, SELFPAY ==
[2023-03-12 07:43] LABS: Basophils Absolute Auto 0.1 K/mm3 (0.0-0.1); Eosinophils Absolute Auto 0.3 K/mm3 (0-0.3); Eosinophils Percent Auto 3.1 % (0-4.4); Hematocrit 45.9 % (42.0-52.0); Immature Granulocyte Absolute 0.04 K/mm3 (0.00-0.031); Immature Granulocyte Percent A 0.5 % (0-0.5); Lymphocytes Absolute Auto 2.03 K/mm3 (0.9-3.2); Lymphocytes Percent Auto 23.6 % (18.3-44.2); Mean Corpuscular HGB Conc 32.7 g/dl (32-36); Mean Corpuscular Hemoglobin 30.4 pg (26-34); Mean Corpuscular Volume 93.1 fl (80-100); Mean Platelet Volume 11.4 fl (7.4-10.4); Monocytes Absolute Auto 1.2 K/mm3 (0.1-0.6); Monocytes Percent Auto 13.7 % (2.6-8.5); Neutrophils Percent Auto 58.1 % (45.5-73.1); Platelet Count Result 184 k/mm3 (150-375); Red Blood Count 4.93 M/mm3 (4.6-6.20); Red Cell Distribution Width 14.1 % (11.5-14.5); White Blood Count 8.6 K/mm3 (4.5-10.0)
[2023-03-12 07:53] LABS: Alanine Aminotransferase 35 U/L (6-50); Albumin Level 4.9 g/dL (3.5-5.1); Alkaline Phosphatase 68 U/L (38-126); Anion Gap 9 mmol/L (8-16); Aspartate Amino Transferase 31 U/L (17-59); Bilirubin,Total 1.2 mg/dL (0.2-1.3); Blood Urea Nitrogen 15 mg/dL (9-20); Calcium 9.5 mg/dL (8.4-10.2); Carbon Dioxide 27 mmol/L (22-30); Chloride 102 mmol/L (98-107); Cholesterol 143 mg/dL (0-200); Estimated Glomerular Filt Rate > 60; Glucose 175 mg/dL (65-110); HDL Direct 36 mg/dL; Potassium 4.1 mmol/L (3.4-5.0); Sodium 138 mmol/L (137-145); Triglycerides 101 mg/dL (<150)
[2023-03-12 08:05] LABS: LDL Cholesterol Direct 82 mg/dL
[2023-03-12 08:17] LABS: Free T4 Free Thyroxine 1.31 ng/mL (0.78-2.19); Vitamin D 25 Hydroxy 56.3 ng/mL
[2023-03-12 08:25] LABS: Prostate Specific Antigen 0.6 ng/mL (< OR = 4.0)
== END 2023-03-12 07:00 | disposition home or self-care (01) ==
LOC: ANHLAB 07:01
PROVIDERS: PCP Physician Assistant; Referring Provider Physician Assistant; Visit Provider Nurse Practitioner Family
DX: R53.83 Other fatigue (principal); E03.9 Hypothyroidism, unspecified; E11.65 Type 2 diabetes mellitus with hyperglycemia; E78.5 Hyperlipidemia, unspecified; Z12.5 Encounter for screening for malignant neoplasm of prostate
CPT/HCPCS: 36415; 80053; 80061; 82043; 82306; 82607; 84153; 84439; 84443; 85025; G0103

== ENCOUNTER 2023-03-31 09:32 | Outpatient (CLI) | payer BC, SELFPAY ==
--- NOTE | 2023-03-31 09:46 | EST_ITS ---
Patient Info Name: Francisco Pineda Age: 62 years : 1960 Gender: Male Ht: 67 in Wt: 210 lbs BSA: 2.16 m2 Exam Date: 03/31/2023 9:58 AM Exam Location: Echo Lab Patient Status: Outpatient Admit Date: 03/31/2023 Staff Ordering Physician: Ambrocio Smith PA-C Attending Provider: Ambrocio Smith PA-C Exercise Technologist: Meaghan Oconnor CT Exercise Physician: Sebastian Guerrero MD Exam Type: CA stress test treadmill Study Info Indications R06.02 - Shortness of breath A treadmill exercise stress test was performed. Summary 1. Normal but sub maximal exercise treadmill stress test without ischemic EKG changes up to a level of 67% max predicted heart rate for age. 2. Hypertensive blood pressure response. 3. Due to submaximal workload achieved, if further ischemic evaluation is needed, recommend Lexiscan myocardial perfusion study. 4. Stress test was supervised and interpreted by Dr. Sebastian Guerrero. Protocol: [place] Stress ECG Details Stage: REST Duration (min): 10 min : 22 sec Speed (mph): 0.0 Grade (%): 0 HR (bpm): 63 SBP (mmHg): 163 DBP (mmHg): 74 METS: --- Stage: REST Duration (min): 12 min : 19 sec Speed (mph): 0.0 Grade (%): 0 HR (bpm): 64 SBP (mmHg): 163 DBP (mmHg): 74 METS: --- Stage: STAGE 1 Duration (min): 1 min : 0 sec Speed (mph): 1.7 Grade (%): 10 HR (bpm): 75 SBP (mmHg): 163 DBP (mmHg): 74 METS: --- Stage: STAGE 1 Duration (min): 2 min : 0 sec Speed (mph): 1.7 Grade (%): 10 HR (bpm): 84 SBP (mmHg): 163 DBP (mmHg): 74 METS: --- Stage: STAGE 1 Duration (min): 3 min : 0 sec Speed (mph): 1.7 Grade (%): 10 HR (bpm): 85 SBP (mmHg): 159 DBP (mmHg): 80 METS: --- Stage: STAGE 2 Duration (min): 1 min : 0 sec Speed (mph): 2.5 Grade (%): 12 HR (bpm): 92 SBP (mmHg): 159 DBP (mmHg): 80 METS: --- Stage: STAGE 2 Duration (min): 2 min : 0 sec Speed (mph): 2.5 Grade (%): 12 HR (bpm): 100 SBP (mmHg): 207 DBP (mmHg): 68 METS: --- Stage: STAGE 2 Duration (min): 3 min : 0 sec Speed (mph): 2.5 Grade (%): 12 HR (bpm): 104 SBP (mmHg): 190 DBP (mmHg): 72 METS: --- Stage: STAGE 3 Duration (min): 0 min : 4 sec Speed (mph): 3.4 Grade (%): 14 HR (bpm): 104 SBP (mmHg): 190 DBP (mmHg): 72 METS: --- Stage: RECOVERY Duration (min): 0 min : 55 sec Speed (mph): 0.0 Grade (%): 0 HR (bpm): 99 SBP (mmHg): 174 DBP (mmHg): 69 METS: --- Stage: RECOVERY Duration (min): 1 min : 55 sec Speed (mph): 0.0 Grade (%): 0 HR (bpm): 83 SBP (mmHg): 174 DBP (mmHg): 69 METS: --- Stage: RECOVERY Duration (min): 2 min : 55 sec Speed (mph): 0.0 Grade (%): 0 HR (bpm): 75 SBP (mmHg): 174 DBP (mmHg): 69 METS: --- Stage: RECOVERY Duration (min): 3 min : 22 sec Speed (mph): 0.0 Grade (%): 0 HR (bpm): 71 SBP (mmHg): 208 DBP (mmHg): 67 METS: --- Rest HR:
== END 2023-03-31 09:33 | disposition home or self-care (01) ==
LOC: ANHCARD 09:33
PROVIDERS: PCP Physician Assistant; Visit Provider Physician Assistant
DX: R06.02 Shortness of breath (principal)
CPT/HCPCS: 93017

== ENCOUNTER 2023-07-08 09:28 | Outpatient (CLI) | payer BC, SELFPAY ==
--- NOTE | ~2023-07-08 | US_ITS ---
EXAMINATION: US renal BI DATE: 07/08/2023 10:57 INDICATION: Proteinuria, unspecified TECHNIQUE: Multiple grayscale and Doppler ultrasound images of the kidneys were obtained. COMPARISON: CT, 06/14/2022 FINDINGS: The right kidney measures 12.3 x 5.2 x 5.3 cm. There are multiple cysts of the kidney measu ring up to 2 cm. The left kidney measures 11.4 x 6.9 x 5 cm. There are multiple cysts of the kidney m easuring up to 1.8 cm. The kidneys demonstrate normal parenchymal echogenicity. There is no hydroneph rosis. The bladder is normal. IMPRESSION: 1. Unremarkable kidneys without hydronephrosis. Reviewed, dictated and finalized at location [facility]. [employer]ING MACHINE OPERATOR
[2023-07-08 09:57] LABS: Creatinine Urine 59.5 mg/dL; Total Protein Urine Random 124 mg/dL; Ur Ttl Prot Creatinine Ratio 2.08 mg/mg (0-0.20)
[2023-07-08 10:09] LABS: Albumin Level 4.4 g/dL (3.5-5.1); Anion Gap 8 mmol/L (8-16); Blood Urea Nitrogen 15 mg/dL (9-20); Calcium 9.5 mg/dL (8.4-10.2); Carbon Dioxide 23 mmol/L (22-30); Chloride 103 mmol/L (98-107); Estimated Glomerular Filt Rate > 60; Glucose 309 mg/dL (65-110); Phosphorus 3.3 mg/dL (2.5-4.5); Potassium 4.3 mmol/L (3.4-5.0); Sodium 134 mmol/L (137-145)
[2023-07-08 10:16] LABS: Complement C3 140 mg/dL (88-165)
[2023-07-11 14:43] LABS: Albumin 4.4 g/dL (3.8-4.8); Alpha 1 Globulin 0.3 g/dL (0.2-0.3); Alpha 2 Globulin 0.8 g/dL (0.5-0.9); Beta 1 Globulin 0.5 g/dL (0.4-0.6); Gamma Globulin 1.1 g/dL (0.8-1.7); Protein, Total 7.7 g/dL (6.1-8.1)
[2023-07-12 10:45] LABS: Anti Glomerular Basement Memb <1.0 AI (<1.0)
[2023-07-12 20:32] LABS: ANCA Screen Negative (Negative)
== END 2023-07-08 09:29 | disposition home or self-care (01) ==
PROVIDERS: PCP Physician Assistant; Visit Provider Internal Medicine Nephrology
DX: R80.9 Proteinuria, unspecified (principal); E11.29 Type 2 diabetes mellitus with other diabetic kidney complication; I10 Essential (primary) hypertension
CPT/HCPCS: 36415; 76775; 80069; 82570; 83520; 84155; 84156; 84165; 84166; 86036; 86038; 86160; 86225

== ENCOUNTER 2024-10-22 09:26 | Emergency (ER) | payer OTHER, SELFPAY ==
[2024-10-22 09:42] VITALS: BP 195/77; PULSE 70; RESP 20; TEMP 37; O2SAT 95
--- NOTE | 2024-10-22 09:48 | ED_ITS ---
HPI - Male Genitourinary General Chief complaint: Urogenital-Male Stated complaint: genital issue Time Seen by Provider: 10/22/24 09:55 Source: patient, RN notes reviewed and old records reviewed Mode of arrival: ambulatory Limitations: no limitations History of Present Illness HPI Narrative: 64-year-old male presents to the [facility] with your irritation, redness to the head of his penis. Patient states that he was recently started on Jardiance which she has stopped. States about 2 weeks ago noticed some irritation. No issues urinating. States that when he retracts his foreskin he noticed some white discharge from around the penis, not from the urethra. Area is now red and irritated. States that he retracted skin today and noticed a little bit up blood. Onset (ago): week(s) (2) Related Data Home Medications ?Medication ?Instructions ?Recorded ?Confirmed ?Last Taken ?Type aspirin 81 mg tablet,delayed 81 mg PO DAILY 04/17/19 09/20/24 Unknown History release (Adult Aspirin Regimen) Allergies Allergy/AdvReac Type Severity Reaction Status Date / Time No Known Allergies Allergy Verified 10/22/24 09:48 Review of Systems Review of Systems: All systems reviewed & are unremarkable except as noted in HPI and below Constitutional: Constitutional: Reports no additional constitutional complaints ENT: Reports system reviewed and no additional complaints, except as documented Cardiovascular: Cardiovascular: Reports no additional cardiovascular complaints, Denies chest pain and Denies dyspnea Respiratory: Respiratory: Reports no additional respiratory complaints, Denies chest congestion, Denies cough and Denies dyspnea Genitourinary: Genitourinary: Reports as per HPI Musculoskeletal: Musculoskeletal: Reports no additional musculoskeletal complaints Integumentary/Breasts: Skin/Breast: Reports system reviewed and no additional complaints, except as docu REPLACED BY [facility] Past Medical History Medical History Type 2 diabetes mellitus without complications Hx of sepsis Hx of atrial fibrillation, no current medication Gastro-esophageal reflux disease without esophagitis 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 Paroxysmal atrial fibrillation Insulin dependent type 2 diabetes mellitus Coronary artery disease Hyperlipidemia Hypertension Hypothyroidism, unspecified Surgical History Surgical History S/P CABG x 2 History of two vessel coronary artery bypass graft (2014) History of cholecystectomy (01/2019) Family History Family History Father Hypertension Family history of malignant neoplasm of kidney Family history of congestive heart failure Carcinoma of colon Family history of malignant neoplasm Patient's father is Mother Patient's mother is in good health Other Diabetes mellitus Social History Social History Social History: Surrogate medical decision maker: Lori Pineda, spouse. Code status: Full code. Smoking status: Never smoker Second hand tobacco smoke exposure: No Alcohol intake: current Alcohol use details: once in awhile Substance use: never Substance use type: does not use Do You Feel Safe in your Home?: Yes Lack of Transportation: No Lack of Food: Never True Current Housing: I Have Housing Concerned About Future Housing: No Difficulty Paying Gas/Electric Bills: No Difficulty Paying for Meds: No Currently Unemployed: No Education: High School Diploma/GED Difficulty w/ Childcare or Family Care: No Spiritual care concerns: No Comments At the time of my signature, I reviewed and agree with the nursing past medical, surgical, social, and family history. There is no relevant family history pertinent to the patient complaint. Exam Const: General: cooperative, healthy appearing, comfortable, no acute distress, well developed, alert and well nourished Nutritional Appearance: well nourished Orientation/consciousness: patient oriented x3 Limitations: no limitations HENMT: Head: normal to inspection Mouth: Yes Normal oral and palatal mucosa present, Yes lip normal, Yes tongue normal and Yes moist mucous membranes Eyes: General: appearance normal, both eyes and all related structures Alignment and Position: alignment normal Neck: Neck: normal visual inspection, full ROM, no lymphadenopathy and no meningeal signs Chest: Chest palpation & inspection: normal inspection of the chest Resp: Effort & Inspection: normal respiratory effort and able to speak in complete sentences Auscultation: clear to auscultation bilaterally, no crackles, no rales, no rhonchi and no wheezes Cardio: Rate: regular rate GI: GI Palp: No abdominal tenderness : General: Yes no CVA tenderness Penis: Yes uncircumcised, Yes erythematous (glans penis), No papules, No priapism, No pustules, No vesicles, No paraphimosis and No phimosis Meatus: no meatla discharge and Erythema at meatus Other: Chaperoned by Dari PETTY Skin: General skin exam: normal color and no rashes or lesions noted Neuro: General: patient oriented x3, gait normal, moves all extremities and no meningeal signs Cognition (Neuro): normal cognition Speech: normal speech Gait exam (Neuro): Normal gait present Extrem: General: normal to inspection, full ROM, capillary refill normal and normal gait Psych: Appearance: grossly normal and well kempt Mental Status: mental status grossly normal Speech and movement: Normal speech and movement present and Clear speech present Affect: normal affect Attitude: cooperative Course Course Level of Care: Express Care Visit Vital Signs Vital signs: Vital Signs Temperature 98.6 F 10/22/24 09:42 Pulse Rate 70 10/22/24 09:42 Respiratory Rate 20 10/22/24 09:42 Blood Pressure 195/77 H 10/22/24 09:42 Pulse Oximetry 95 10/22/24 09:42 Oxygen Delivery Room Air 10/22/24 09:42 Temperature 98.6 F 10/22/24 09:42 Pulse Rate 70 10/22/24 09:42 Respiratory Rate 20 10/22/24 09:42 Blood Pressure 195/77 H 10/22/24 09:42 Pulse Oximetry 95 10/22/24 09:42 Oxygen Delivery Room Air 10/22/24 09:42 Reviewed MDM - Male Genitourinary MDM Narrative Medical decision making narrative: Patient sitting in exam room. Patient is nontoxic, blood pressure is elevated, discussed this with patient. Currently being treated. Denies any headaches, blurry vision, change in vision or chest pain. Patient's blood sugar is elevated, recently stop the Jardiance, will start testing 3 times a day and using his sliding scale insulin with meals Patient with you erythema to the glans penis Most likely yeast in origin, will cover antibiotic. Discussed with patient and signs and symptoms of proceed to the emergency room which both verbalized understanding, stressed the importance of following up with primary care provider for evaluation of his blood sugar, blood pressure and infection. Discharge instructions reviewed with patient, as well as provided in writing p er nursing staff. The instructions also include specific and strict return/GO TO THE ER as well as f/u information. All questions have been answered, and the patient deny any further questions with discharge and discharge plan. Some parts of this dictation were generated by voice recognition software and may contain typographical and/or grammatical inaccuracies. Differential Diagnosis Differential diagnosis: Likely urinary tract infection, urethritis, epididymitis and other (balanitis) Lab Data Labs: Lab Results 10/22/24 Range/Units 10:06 POC Capillary Glucose 285 H (65-105) mg/dl Reviewed Critical Care Time Critical Care Time Critical Care Time: No Discharge Plan Discharge Clinical Impression: Balanitis Patient Disposition: Home Condition: Stable Instructions: Antibiotic Form, Balanitis (ED) Additional Instructions: Check your blood sugar and use your insulin to better control your blood sugar. Today your blood sugar was 285 in clinic. Today your blood pressure was 195/77. Please check your blood pressure at home, keep a close record and follow-up with your primary care provider within the next 2 weeks to have this rechecked. Follow-up with primary care provider without fail within 1-2 weeks Take the antibiotic and use the antifungal cream as prescribed. Follow-up with urology as needed. For new or worsening symptoms please go directly to the emergency room Patient Language: [place]an Prescriptions: New cephalexin 500 mg capsule 500 mg PO Q8H 7 Days Qty: 21 0RF clotrimazole 1 % cream 1 applic topical BID 28 Days Qty: 30 0RF No Action aspirin [Adult Aspirin Regimen] 81 mg tablet,delayed release (DR/EC) 81 mg PO DAILY metoprolol succinate 25 mg capsule,sprinkle,ER 24hr 25 mg PO BID Qty: 180 3RF losartan 50 mg tablet See Rx Instructions .ROUTE .COMPLEX Qty: 90 3RF Dose Instruction: TAKE 1 TABLET (50 MG) DAILY. NEED NEW LAB RESULTS Rx Instructions: TAKE 1 TABLET (50 MG) DAILY. Gvoke HypoPen 2-Pack 1 mg/0.2 mL auto-injector 1 mg subcut ONCE Qty: 0.4 4RF Rx Instructions: may repeat once after 15 minutes if no response insulin degludec [Tresiba FlexTouch U-200] 200 unit/mL (3 mL) insulin pen 46 unit subcut DAILY Qty: 27 3RF Jardiance 25 mg tablet 25 mg PO DAILY Qty: 90 1RF Mounjaro 5 mg/0.5 mL pen injector 5 mg subcut WEEKLY Qty: 6 1RF albuterol sulfate 90 mcg/actuation HFA aerosol inhaler 2 inh inhalation Q4-6H PRN (Reason: shortness of breath or wheezing) Qty: 8.5 0RF simvastatin 20 mg tablet 40 mg PO DAILY Qty: 90 1RF Humalog KwikPen Insulin 200 unit/mL (3 mL) insulin pen 15 unit subcut TIDWMEAL Qty: 42 1RF Rx Instructions: 15 units before meals + SSI 150-175: 2 unit 176-200: 3 units 201-225: 4 units 226-250: 5 units 251-275: 6 units 276-300: 7 units 301-325: 8 units 326-350: 9 units 351-375: 10 units 376-400: 11 units >401: 12 units (DME) blood sugar diagnostic Strip See Rx Instructions .ROUTE .MEDSUPPLY Qty: 100 4RF Rx Instructions: Use to check BS 2 times daily (DME) pen needle, diabetic 31 gauge x 5/16 needle See Rx Instructions .ROUTE .COMPLEX Qty: 100 11RF Dose Instruction: USE WITH INSULIN (HUMALOG 75/25) INJECTIONS TWICE A DAY Rx Instructions: USE WITH INSULIN FOUR TIMES A DAY (DME) lancets [CareTouch Safety Lancets] 28 gauge misc See Rx Instructions .Route Qty: 100 4RF Rx Instructions: As directed, twice daily levothyroxine [Synthroid] 175 mcg tablet 175 mcg PO QAM Qty: 90 2RF Follow-up/Referrals: Balaji Krishnamurthy DO [Primary Care Provider] - 3 Days ([facility] care follow up blood pressure, Blood sugar and balanitis) Israel Alfaro MD [Physician] - 1 Week Time of Disposition: 10:16
[2024-10-22 10:08] LABS: Glucose Point of Care 285 mg/dl (65-105)
== END 2024-10-22 10:20 | disposition home or self-care (01) ==
PROVIDERS: Emergency Provider Nurse Practitioner; PCP Internal Medicine
DX: N48.1 Balanitis (principal); E11.9 Type 2 diabetes mellitus without complications; Z79.4 Long term (current) use of insulin; Z79.85 Long-term (current) use of injectable non-insulin antidiabetic drugs; I35.0 Nonrheumatic aortic (valve) stenosis; I48.0 Paroxysmal atrial fibrillation; I25.10 Atherosclerotic heart disease of native coronary artery without angina pectoris; E78.5 Hyperlipidemia, unspecified; I10 Essential (primary) hypertension; E03.9 Hypothyroidism, unspecified; K21.9 Gastro-esophageal reflux disease without esophagitis; E66.9 Obesity, unspecified; Z68.32 Body mass index [BMI] 32.0-32.9, adult; Z95.1 Presence of aortocoronary bypass graft; Z79.82 Long term (current) use of aspirin
CPT/HCPCS: 82948; 99213; G0463